=== PATIENT | female | born 1945 | race Caucasian/White ===

== ENCOUNTER → 2017-04-12 | Outpatient (REF) | payer MEDICARE, OTHER ==
[~2017-04-12] MED LIST: /RISE30TA OR; SIMV80TA OR; VICO5TAB OR
[2017-04-12 12:57] LABS: BASO % 0.8 % (0.0-1.0); EOS # 0.1 10^3/uL (0.0-0.50); EOS % 1.4 % (0.0-3.0); IMMATURE GRANULOCYTE % 0.2 % (0-0); LYMPH # 1.8 10^3/uL (1.5-4.5); MEAN CORPUSCULAR HEMOGLOBIN 31.6 pg (27.0-33.0); MEAN CORPUSCULAR HGB CONC 33.7 g/dl (32.0-36.5); MEAN CORPUSCULAR VOLUME 93.8 fl (80.0-96.0); MONO # 0.3 10^3/uL (0.0-0.8); MONO % 6.1 % (0.0-5.0); NEUTROPHILS # 2.7 10^3/uL (1.8-7.7); NEUTROPHILS % 54.5 % (36.0-66.0); PLATELET COUNT, AUTOMATED 199 10^3/uL (150-450); RED CELL DISTRIBUTION WIDTH 12.1 % (11.5-14.5); WHITE BLOOD COUNT 4.9 10^3/uL (4.0-10.0)
[2017-04-12 13:36] LABS: ALBUMIN 3.7 GM/DL (3.2-5.2); ALBUMIN/GLOBULIN RATIO 1.03 (1.00-1.93); ALKALINE PHOSPHATASE 51 U/L (45-117); ALT/SGPT 18 U/L (12-78); ANION GAP 7 MEQ/L (8-16); AST/SGOT 13 U/L (15-37); BILIRUBIN,TOTAL 0.3 MG/DL (0.2-1.0); BLOOD UREA NITROGEN 16 MG/DL (7-18); CALCIUM LEVEL 9.3 MG/DL (8.8-10.2); CARBON DIOXIDE LEVEL 27 MEQ/L (21-32); CHLORIDE LEVEL 107 MEQ/L (98-107); CHOLESTEROL LEVEL 361 MG/DL (<200); CREATININE FOR GFR 0.63 MG/DL (0.55-1.02); GLOMERULAR FILTRATION RATE > 60.0 (>39); GLUCOSE, FASTING 84 MG/DL (83-110); SODIUM LEVEL 141 MEQ/L (136-145); TOTAL PROTEIN 7.3 GM/DL (6.4-8.2); TRIGLYCERIDES LEVEL 241 MG/DL (<150)
== END ==
LOC: M LABDRWAD 12:24
PROVIDERS: ATTEND Emergency Medicine
DX: Z00.00 Encounter for general adult medical examination without abnormal findings (principal); E78.2 Mixed hyperlipidemia; N39.0 Urinary tract infection, site not specified; R53.83 Other fatigue; E55.9 Vitamin D deficiency, unspecified

== ENCOUNTER → 2017-05-08 | Outpatient (CLI) | payer MEDICARE, OTHER ==
--- NOTE | 2017-05-08 10:00 | REPMRS ---
Patient History The patient states she had a clinical breast exam in 05/12 Patient is postmenopausal. No known family history of cancer. Digital Woman Screen Mammo: May 08, 2017 - Exam #: [id number] Bilateral CC and MLO view(s) were taken. Technologist: Park Eaton, Technologist Prior study comparison: April 07, 2016, digital woman screen mammo performed at [facility] to [facility]. February 04, 2015, digital woman screen mammo performed at [facility] to [facility]. FINDINGS: There are scattered fibroglandular densities. There is a fairly symmetric fibroglandular pattern in both breasts. There has been no interval development of masses, areas of architectural distortion or clusters of microcalcifications typical of malignancy. ASSESSMENT: BI-RADS/ACR category 2 mammogram. Benign finding(s). Recommendation Routine screening mammogram of both breasts in 1 year (for women over age 40). This mammogram was interpreted with the aid of an FDA-approved computer-aided dectection system. Electronically Signed By: Mario Washington MD 05/08/17 1000
== END ==
LOC: M WHC 08:40
PROVIDERS: ATTEND Nurse Practitioner Family
DX: Z01.419 Encounter for gynecological examination (general) (routine) without abnormal findings (principal); Z12.31 Encounter for screening mammogram for malignant neoplasm of breast; Z78.0 Asymptomatic menopausal state; Z12.12 Encounter for screening for malignant neoplasm of rectum
CPT/HCPCS: 82270; G0101; G0202

== ENCOUNTER → 2017-09-26 | Outpatient (REF) | payer MEDICARE, OTHER | LOC: M LAB REF 17:10 | DX: N39.0 Urinary tract infection, site not specified (principal) | CPT/HCPCS: 87086 ==

== ENCOUNTER → 2018-04-11 | Outpatient (CLI) | payer MEDICARE, OTHER ==
[2018-04-11 13:37] LABS: ALBUMIN 3.7 GM/DL (3.2-5.2); ALBUMIN/GLOBULIN RATIO 0.97 (1.00-1.93); ALKALINE PHOSPHATASE 50 U/L (45-117); ALT/SGPT 15 U/L (12-78); ANION GAP 6 MEQ/L (8-16); AST/SGOT 13 U/L (7-37); BILIRUBIN,TOTAL 0.4 MG/DL (0.2-1.0); BLOOD UREA NITROGEN 15 MG/DL (7-18); CALCIUM LEVEL 8.6 MG/DL (8.8-10.2); CARBON DIOXIDE LEVEL 29 MEQ/L (21-32); CHLORIDE LEVEL 107 MEQ/L (98-107); CHOLESTEROL LEVEL 361 MG/DL (<200); CREATININE FOR GFR 0.68 MG/DL (0.55-1.30); GLOMERULAR FILTRATION RATE > 60.0 (>39); GLUCOSE, FASTING 87 MG/DL (70-100); HDL CHOLESTEROL 50 MG/DL (>40); LDL CHOLESTEROL 250 MG/DL (<100); NON-HDL-C 311 MG/DL; SODIUM LEVEL 142 MEQ/L (136-145); TOTAL 25(OH) VITAMIN D 30.6 NG/ML (30.0-100.0); TOTAL PROTEIN 7.5 GM/DL (6.4-8.2); TRIGLYCERIDES LEVEL 305 MG/DL (<150)
== END ==
LOC: M ADAMS 09:37
DX: E78.2 Mixed hyperlipidemia (principal); E55.9 Vitamin D deficiency, unspecified
CPT/HCPCS: 80053

== ENCOUNTER → 2018-05-04 | Outpatient (CLI) | payer MEDICARE, OTHER | LOC: M WHC 14:42 | DX: Z12.31 Encounter for screening mammogram for malignant neoplasm of breast (principal); Z01.419 Encounter for gynecological examination (general) (routine) without abnormal findings (principal); M81.0 Age-related osteoporosis without current pathological fracture; Z78.0 Asymptomatic menopausal state; Z12.12 Encounter for screening for malignant neoplasm of rectum | CPT/HCPCS: 77067 ==

== ENCOUNTER → 2018-07-10 | Outpatient (CLI) | payer MEDICARE, OTHER ==
--- NOTE | 2018-07-10 16:18 | REP ---
Pelvic sonography: History: Abdominal distension. Findings: Transabdominal and transvaginal scanning are performed. Uterine dimensions are somewhat enlarged at 11.0 x 5.8 x 8.4 cm. Endometrial echo 0.4 cm thick. A small quantity of endometrial fluid is seen. Endometrial displacement is seen posteriorly due to a large anterior fibroid. This measures 6.2 x 5.4 x 4.8 cm. There are two smaller fibroid posteriorly measuring 1.9 and 2.8 cm in greatest diameter respectively. No free fluid is seen. The right ovary is normal measuring 2.4 x 1.6 x 2.8 cm. The left ovary could not be seen either transabdominally or transvaginally. No cul-de-sac fluid is seen. Impression: Enlarged fibroid uterus. Left ovary could not be identified.
== END ==
LOC: M WHC 09:54
PROVIDERS: ATTEND Nurse Practitioner Family
DX: R14.0 Abdominal distension (gaseous) (principal)

== ENCOUNTER → 2018-07-18 | Outpatient (REF) | payer MEDICARE, OTHER | LOC: M SFHCPLAZ 17:22 | PROVIDERS: ATTEND Dermatology | DX: L30.8 Other specified dermatitis (principal) ==

== ENCOUNTER → 2018-12-24 | Outpatient (REF) | payer MEDICARE, OTHER ==
[2018-12-24 12:46] LABS: BASO % 0.7 % (0.0-1.0); EOS # 0.1 10^3/uL (0.0-0.50); EOS % 1.4 % (0.0-3.0); HEMATOCRIT 41.6 % (36.0-47.0); HEMOGLOBIN 13.8 g/dl (12.0-15.5); LYMPH # 1.9 10^3/uL (1.5-4.5); LYMPH % 42.9 % (24.0-44.0); MEAN CORPUSCULAR HEMOGLOBIN 31.7 pg (27.0-33.0); MEAN CORPUSCULAR HGB CONC 33.2 g/dl (32.0-36.5); MEAN CORPUSCULAR VOLUME 95.4 fl (80.0-96.0); MONO # 0.3 10^3/uL (0.0-0.8); MONO % 6.7 % (0.0-5.0); NEUTROPHILS # 2.1 10^3/uL (1.8-7.7); NEUTROPHILS % 48.1 % (36.0-66.0); PLATELET COUNT, AUTOMATED 208 10^3/uL (150-450); RED BLOOD COUNT 4.36 10^6/uL (4.00-5.40); WHITE BLOOD COUNT 4.3 10^3/uL (4.0-10.0)
[2018-12-24 12:57] LABS: ALBUMIN 3.9 GM/DL (3.2-5.2); ALT/SGPT 15 U/L (12-78); BILIRUBIN,TOTAL 0.3 MG/DL (0.2-1.0); BLOOD UREA NITROGEN 17 MG/DL (7-18); CALCIUM LEVEL 8.6 MG/DL (8.8-10.2); CARBON DIOXIDE LEVEL 29 MEQ/L (21-32); CHLORIDE LEVEL 108 MEQ/L (98-107); CHOLESTEROL LEVEL 310 MG/DL (<200); CREATININE FOR GFR 0.73 MG/DL (0.55-1.30); GLOMERULAR FILTRATION RATE > 60.0 (>39); GLUCOSE, FASTING 90 MG/DL (70-100); HDL CHOLESTEROL 54 MG/DL (>40); LDL CHOLESTEROL 205 MG/DL (<100); NON-HDL-C 256 MG/DL; POTASSIUM SERUM 4.2 MEQ/L (3.5-5.1); SODIUM LEVEL 142 MEQ/L (136-145); TOTAL PROTEIN 7.7 GM/DL (6.4-8.2); TRIGLYCERIDES LEVEL 256 MG/DL (<150)
== END ==
LOC: M SFHCADAM 08:18
PROVIDERS: ATTEND Family Medicine
DX: Z00.00 Encounter for general adult medical examination without abnormal findings (principal); E78.00 Pure hypercholesterolemia, unspecified

== ENCOUNTER → 2019-02-11 | Outpatient (CLI) | payer MEDICARE, OTHER ==
--- NOTE | 2019-02-11 15:54 | REP ---
REASON: Cough and pyrexia. PRIORS: None. There is mild cardiomegaly. The lung rajput are clear and the pleural angles are sharp. The osseous structures are within normal limits for the patient's age. IMPRESSION: Mild cardiomegaly, but no evidence of acute cardiopulmonary disease. Electronically Signed by Jonathan Hernandez DO 02/11/2019 04:49 P
== END ==
LOC: M ADAMS 13:48
PROVIDERS: ATTEND Physician Assistant
DX: R05 Cough (principal); R50.9 Fever, unspecified; I51.7 Cardiomegaly

== ENCOUNTER → 2019-05-14 | Outpatient (CLI) | payer MEDICARE, OTHER ==
--- NOTE | 2019-05-14 12:53 | REPMRS ---
Patient History The patient states she had a clinical breast exam in 04/2019. Patient is postmenopausal. No known family history of cancer. No Hormone Replacement Therapy 3D TOMOSYNTHESIS WAS PERFORMED. [facility] lifetime risk for breast cancer is 3.7%. Digital Woman Screen Mammo: May 14, 2019 - Exam #: [id number] Bilateral CC and MLO view(s) were taken. Technologist: Marla Lainez, Technologist Prior study comparison: May 04, 2018, bilateral digital woman screen mammo performed at [facility]. May 08, 2017, digital woman screen mammo performed at [facility]. FINDINGS: The breast tissue is heterogeneously dense. This may lower the sensitivity of mammography. There has been no change in the appearance of the mammogram from the prior studies. There is a moderate amount of residual fibroglandular tissue which is fairly symmetric. There is no interval development of dominant mass, areas of architectural distortion, or clustered microcalcification typical of malignancy. Assessment: BI-RADS/ACR category 1 mammogram. Negative Mammogram. Recommendation Routine screening mammogram in 1 year (for women over age 40). This mammogram was interpreted with the aid of an FDA-approved computer-aided dectection system. Electronically Signed By: Mario Washington MD 05/14/19 [id number]
== END ==
LOC: M WHC 11:42
PROVIDERS: ATTEND Nurse Practitioner Family
DX: Z12.31 Encounter for screening mammogram for malignant neoplasm of breast (principal); Z78.0 Asymptomatic menopausal state
CPT/HCPCS: 77063; 77067; G0463

== ENCOUNTER 2019-10-26 10:16 | Inpatient (IN) | payer MEDICARE, OTHER ==
[~2019-10-26] VITALS: Ht 162.6 cm; Wt 59.4 kg
--- NOTE | 2019-10-26 11:09 | REP ---
Clinical: Possible acute cerebrovascular accident. Comparison: 08/30/2010 . Findings: Age-related atrophy and microvascular ischemic changes are appreciated. The ventricles and sulci are symmetric. Washington-white differentiation is maintained. There is no evidence for acute intracranial hemorrhage, mass/mass effect, pathology or infarction. No extra-axial fluid collection. Calvarium is intact. Paranasal sinuses and mastoid air cells are clear. Impression: Age related atrophy and microvascular ischemic changes. No acute intracranial hemorrhage, infarction, or mass/mass effect. Electronically Signed by Michael Eubanks MD 10/26/2019 11:00 A
--- NOTE | 2019-10-26 11:16 | REP ---
Clinical: Acute cerebrovascular accident . Comparison: 02/11/2019 . Findings: The mediastinum and cardiac silhouette are stable and within normal limits for portable technique. The lung rajput are clear without acute consolidation, effusion, or pneumothorax. Skeletal structures demonstrate old right proximal right humerus fracture. Impression: No acute cardiopulmonary process appreciated. Electronically Signed by Michael Eubanks MD 10/26/2019 11:07 A
[2019-10-26] MEDS ORDERED: ISOVUE-370 76% 100ML VIAL As Ordered ONE (11:23)
[2019-10-26] MEDS ORDERED: ASPIRIN 325 MG TAB PO ONE (11:30)
[2019-10-26 11:33] LABS: BASO % 0.5 % (0.0-1.0); EOS % 0.5 % (0.0-3.0); HEMOGLOBIN 13.9 g/dl (12.0-15.5); LYMPH # 1.6 10^3/uL (1.5-5.0); LYMPH % 29.3 % (24.0-44.0); MEAN CORPUSCULAR HGB CONC 34.8 g/dl (32.0-36.5); MONO # 0.4 10^3/uL (0.0-0.8); MONO % 6.6 % (0.0-5.0); NEUTROPHILS # 3.5 10^3/uL (1.5-8.5); NEUTROPHILS % 62.9 % (36.0-66.0); PLATELET COUNT, AUTOMATED 209 10^3/uL (150-450); RED BLOOD COUNT 4.35 10^6/uL (4.00-5.40); WHITE BLOOD COUNT 5.6 10^3/uL (4.0-10.0)
[2019-10-26 11:47] LABS: INR 0.96; PROTHROMBIN TIME 12.5 SECONDS (11.8-14.0)
[2019-10-26 11:48] LABS: PARTIAL THROMBOPLASTIN TIME 36.1 SECONDS (25.0-38.4)
[2019-10-26 12:04] LABS: CK-MB VALUE MASS 1.1 NG/ML (<3.6); CPK CREATINE PHOSPHOKINASE 49 U/L (26-192); MB/CK RELATIVE INDEX 2.24 (< OR =4); TROPONIN I < 0.02 NG/ML (< 0.10)
[2019-10-26] MEDS ORDERED: VITA500075 PO (12:21)
[2019-10-26] MEDS ORDERED: IRON65TA2 PO (12:21)
[2019-10-26] MEDS ORDERED: ACETAMINOPHEN TAB 650MG DOSE (2X325MG) PO PRN (13:00)
--- NOTE | 2019-10-26 13:25 | HPEPDOC ---
General Date of Admission October 26, 2019 at 10:17 Date of Service: October 26, 2019 Chief Complaint The patient is a 74-year-old female admitted with a reason for visit of Diplopia. Source: Patient Exam Limitations: No limitations Timing/Duration: Other (since Monday) Severity: Moderate Associated Symptoms: Other (, blurred vision, left eye) History of Present Illness This is 74 years old white female with past medical history of fibroid uterus and osteoporosis was in usual state of health until Monday when she developed headache with a left-sided IV daily as an A she developed double vision from bedside, but slowly went away, patient took Tylenol with relief of symptoms but today she woke up again with similar symptoms. No history of nausea, vomiting, weakness, etc. Patient follows up with Dr. Cronin, she was seen by him on 09/11 with chief complaints of right sclera, redness, and was diagnosed with right supple conjunctival hemorrhage. Dr. Segura from neurology was called and he advised to admit patient for MRI of brain for possible TIA versus stroke Home Medications Scheduled Cholecalciferol (Vitamin D3) (Vitamin D3) 125 Mcg Capsule, 5,000 UNITS PO DAILY, (Reported) Ferrous Sulfate (Iron) 325 Mg Tablet, 325 MG PO DAILY, (Reported) Allergies Coded Allergies: Sulfa (Sulfonamide Antibiotics) (Verified Allergy, Unknown, RASH, 10/26/19) Past Medical History Medical History Fibroid uterus and osteoporosis Surgical History Colonoscopy with polypectomy Social History * Smoker: Denies Alcohol: Denies Drugs: denies A-FIB/CHADSVASC A-FIB History Current/History of A-Fib/PAF?: No Review of Systems Constitutional: Denies: Chills, Fever, Malaise, Night Sweats, Weakness, Fatigue, Weight Loss, Lethargy, Other Eyes: Reports: Vision change, Other (. Left eye Doppler. And, vision changes) ENT: Denies: Head Aches, Ear Pain, Dysphagia, Sinus Congestion, Post Nasal Drip, Sore Throat, Epistaxis, Other Symptoms Skin: Denies: Rash, Lesions, Jaundice, Bruising, Itching, Dry, Breakdown, Nail Changes, Other Pulmonary: Denies: Dyspnea, Cough, Pleuritic Chest Pain, Other Symptoms Cardiovascular: Denies: Chest Pain, Palpitations, Orthopnea, Paroxysmal Noc. Dyspnea, Edema, Lt Headedness, Other Symptoms Gastrointestinal: Denies: Nausea, Vomiting, Abdominal Pain, Diarrhea, Constipation, Melena, Hematochezia, Other Symptoms Genitourinary: Denies: Dysuria, Frequency, Incontinence, Hematuria, Retention, Other Symptoms Hematologic: Denies: Bruising, Bleeding Excessively, Petecchia, Purpura, Enlarged Lymph Nodes, Other Hematologic Endocrine: Denies: Polydipsia, Polyphagia, Polyuria, Heat Intolerance, Cold Intolerance, Other Endocrine Sx Musculoskeletal: Denies: Neck Pain, Back Pain, Shoulder Pain, Arm Pain, Hand Pain, Leg Pain, Foot Pain, Joint Pain, Muscle Pain, Spasms, Other Symptoms Neurological: Denies: Weakness, Numbness, Incoordination, Change in speech, Confusion, Seizures, Other Symptoms Psych: Denies: Mood Normal, Anxiety, Depression, Memory Issues, Thoughts of Self Harm, Anger, Thoughts of Harming Other, Other Psych Physical Examination General Exam: Positive: Alert, Cooperative Eye Exam: Positive: PERRLA, Conjunctiva & lids normal, Other Eye Symptoms (. Positive tenderness on palpation at left temporal area) ENT Exam: Positive: Atraumatic Neck Exam: Positive: Supple Chest Exam: Positive: Clear to auscultation, Normal air movement Heart Exam: Positive: Rate Normal, Normal S1, Normal S2 Abdomen Exam: Positive: Normal bowel sounds, Soft Extremity Exam: Positive: Normal pulses Skin Exam: Positive: Nl turgor and temperature Neuro Exam: Positive: Strength at 5/5 X4 ext, Sensation Intact, Cranial Nerves 3-12 NL Psych Exam: Positive: Mood NL, Oriented x 3 Vital Signs Vital Signs Date Time Temp Pulse Resp B/P (MAP) Pulse Ox O2 Delivery O2 Flow Rate FiO2 10/26/19 10:16 97.7 72 18 179/74 (109) 99 Room Air 154/64 (94) Laboratory Data Labs 24H Laboratory Tests 2 10/26/19 11:19: Immature Granulocyte % (Auto) 0.2, Neutrophils (%) (Auto) 62.9, Lymphocytes (%) (Auto) 29.3, Monocytes (%) (Auto) 6.6H, Eosinophils (%) (Auto) 0.5, Basophils (%) (Auto) 0.5, Neutrophils # (Auto) 3.5, Lymphocytes # (Auto) 1.6, Monocytes # (Auto) 0.4, Eosinophils # (Auto) 0.0, Basophils # (Auto) 0.0, Nucleated Red Blood Cells % (auto) 0.0, Prothrombin Time 12.5, Prothromb Time International Ratio 0.96, Activated Partial Thromboplast Time 36.1, POC Glucose (Misc Panel) 104, POC Sodium (Misc Panel) 141, POC Potassium (Misc Panel) 3.8, POC Chloride (Misc Panel) 104, POC Total CO2 (Misc Panel) 24.0, POC Blood Urea Nitrogen (Misc Panel 15, POC Ionized Calcium (Misc Panel) 5.1, POC Creatinine (Misc Panel) 0.7, POC Hematocrit (Misc Panel) 40.0, Total Creatine Kinase 49, Creatine Kinase MB 1.1, Creatine Kinase MB Relative Index 2.24, Troponin I < 0.02 CBC/BMP Laboratory Tests 10/26/19 11:19 Problems (1) Diplopia Status: Acute Problem Text: 74 years old white female with past medical history of fibroid uterus and osteoporosis. He had developed some conjunctival hemorrhage and redness of her sclera on right-sided and was seen by PMD recently again she developed this time. Headache less than as of 5, vision changes Doppler. Left eye since Monday symptoms resolved with Tylenol, but again she woke up this mo rning with a similar symptoms. On examination there is no neurological deficit, but there is a positive tenderness on left temporal area on palpation. All her other CAT scans has been negative so far for any evidence of CVA, DC of the brain is still pending. Patient most likely has symptoms of temporal arteritis , but cannot also rule out TIA versus CVA Admit patient to PCU with telemetry Neuro check every 4 hours for 24 hour Saline lock Patient received a aspirin 325 mg by mouth in the ED, will continue the same I will order a stat ESR to substantiate diagnosis of temporal arteritis Patient will be given 1 dose of prednisone 60 mg by mouth 1 until proven otherwise Reviewed patient's old medical records states that she developed severe myalgia with statins, hence will not start statin For better blood pressure control. Will start her on metoprolol 25 mg by mouth twice a day and adjust dose accordingly Follow pending. ESR an MRI brain DVT prophylaxis with Lovenox Activity as tolerated Diet 2 g sodium (2) HTN (hypertension) Status: Acute Problem Text: According to patient, she has no history of hypertension but her blood pressure had remained 180/70 in ED Considering neuro symptoms and headache. We'll start her on metoprolol 25 mg by mouth twice a day to control her blood pressure Will continue monitoring and change meds accordingly Echocardiogram for tomorrow morning. He has been ordered Plan / VTE VTE Prophylaxis Ordered?: Yes KAMRAN LAGUNA MD October 26, 2019 13:25
[2019-10-26] MEDS: METOPROLOL TART 25 MG TABLET PO SCH ×2 (13:32→20:28)
[2019-10-26 13:55] VITALS: BP 158/84
[2019-10-26] MEDS ORDERED: predniSONE 20 MG TAB PO ONE (14:00)
[2019-10-26] MEDS ORDERED: SLF 3 ML SYR IV PRN (14:00)
[2019-10-26 14:13] LABS: ERYTHROCYTE SEDIMENTATION RATE 56 mm/hr (0-30)
[2019-10-26] MEDS: SLF 3 ML SYR IV SCH ×2 (14:17→20:29)
--- NOTE | 2019-10-26 15:21 | REPVR ---
PROCEDURE INFORMATION: Exam: MR Head Without Contrast Exam date and time: 10/26/2019 2:45 PM Age: 74 years old Clinical indication: Pain; Visual disturbance; Other: Just above left eye; Patient HX: PT states double vision in left eye this am along with little headache above left eye; Additional info: Possible occipital infarct, double vision TECHNIQUE: Imaging protocol: MR of the head without contrast. COMPARISON: CT Head without contrast 10/26/2019 10:33 AM FINDINGS: Brain: There is mild patchy increased T2 signal intensity within the bilateral cerebral periventricular white matter, consistent with chronic microvascular ischemic changes. There are few small focal areas of chronic ischemia in bilateral frontal, parietal and periatrial white matter. There are prominent perivascular spaces in bilateral frontoparietal white matter.There is no abnormal diffusion weighted signal intensity to suggest an acute ischemic event. There is mild diffuse cerebral atrophy present, consistent with this patient's age. Chronic ischemic changes are seen in the florencio. Ventricles: The ventricular system demonstrates mild diffuse compensatory enlargement. Bones/joints: Unremarkable. Soft tissues: Unremarkable. Sinuses: Mild mucosal thickening is seen in the paranasal sinuses. Mastoid air cells: Normal as visualized. No mastoid effusion. Orbits: Unremarkable. IMPRESSION: 1. No acute infarction, masses or hemorrhage is seen. No acute intracranial abnormality is identified. 2. Diffuse age-related cerebral atrophy and mild chronic microvascular white matter ischemic changes, without evidence of an acute intracranial abnormality. 3. There has been no adverse interval change since the previous study. Electronically signed by: John Lee On 10/26/2019 15:21:31 PM
--- NOTE | 2019-10-26 19:32 | ECGEPIP ---
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
[2019-10-26 20:00] VITALS: BP 129/61
[2019-10-26] MEDS: ENOXAPARIN 40MG/0.4ML SYRINGE (J1650 PER 10MG) SC SCH (20:28)
[2019-10-27] VITALS (7 sets, daily range): BP systolic 105–143; BP diastolic 49–65
[2019-10-27 03:56] LABS: HEMOGLOBIN 12.8 g/dl (12.0-15.5); MEAN CORPUSCULAR HEMOGLOBIN 31.4 pg (27.0-33.0); MEAN CORPUSCULAR HGB CONC 34.6 g/dl (32.0-36.5); MEAN CORPUSCULAR VOLUME 90.9 fl (80.0-96.0); PLATELET COUNT, AUTOMATED 226 10^3/uL (150-450); RED BLOOD COUNT 4.07 10^6/uL (4.00-5.40); WHITE BLOOD COUNT 8.4 10^3/uL (4.0-10.0)
[2019-10-27] MEDS: SLF 3 ML SYR IV SCH ×3 (04:20→20:18)
[2019-10-27 04:24] LABS: ALBUMIN 3.4 GM/DL (3.2-5.2); ALT/SGPT 13 U/L (12-78); BILIRUBIN,TOTAL 0.4 MG/DL (0.2-1.0); BLOOD UREA NITROGEN 19 MG/DL (7-18); CALCIUM LEVEL 9.4 MG/DL (8.8-10.2); CARBON DIOXIDE LEVEL 24 MEQ/L (21-32); CHLORIDE LEVEL 105 MEQ/L (98-107); CREATININE FOR GFR 0.66 MG/DL (0.55-1.30); GLOMERULAR FILTRATION RATE > 60.0 (>39); GLUCOSE, FASTING 109 MG/DL (70-100); POTASSIUM SERUM 3.8 MEQ/L (3.5-5.1); SODIUM LEVEL 137 MEQ/L (136-145); TOTAL PROTEIN 7.2 GM/DL (6.4-8.2)
[2019-10-27] MEDS: predniSONE 20 MG TAB PO SCH (08:56)
[2019-10-27] MEDS: METOPROLOL TART 25 MG TABLET PO SCH (08:57)
[2019-10-27] MEDS: FERROUS SULFATE 325MG TAB PO SCH (08:57)
[2019-10-27] MEDS: ASPIRIN 325 MG TAB PO SCH (08:57)
--- NOTE | 2019-10-27 11:07 | IPNPDOC ---
Subjective Date Seen The patient was seen on 10/27/19. Subjective Chief Complaint/HPI Patient is still sees double on lateral gaze on left side and inferior gaze on left side, but no more headache General: Denies: ROS Unobtainable, Chills, Night Sweats, Fatigue, Malaise, Normal Appetite, Other Symptoms Constitutional: Denies: Chills, Fever, Malaise, Night Sweats, Weakness, Fatigue, Weight Loss, Lethargy, Other Eyes: Reports: Other (Depo-Provera on the left years and inferior gaze) ENT: Denies: Head Aches, Ear Pain, Dysphagia, Sinus Congestion, Post Nasal Drip, Sore Throat, Epistaxis, Other Symptoms Skin: Denies: Rash, Lesions, Jaundice, Bruising, Itching, Dry, Breakdown, Nail Changes, Other Pulmonary: Denies: Dyspnea, Cough, Pleuritic Chest Pain, Other Symptoms Cardiovascular: Denies: Chest Pain, Palpitations, Orthopnea, Paroxysmal Noc. Dyspnea, Edema, Lt Headedness, Other Symptoms Gastrointestinal: Denies: Nausea, Vomiting, Abdominal Pain, Diarrhea, Constipation, Melena, Hematochezia, Other Symptoms Musculoskeletal: Denies: Neck Pain, Back Pain, Shoulder Pain, Arm Pain, Hand Pain, Leg Pain, Foot Pain, Joint Pain, Muscle Pain, Spasms, Other Symptoms Neurological: Denies: Weakness, Numbness, Incoordination, Change in speech, Confusion, Seizures, Other Symptoms Objective Physical Examination Eye Exam: Positive: PERRLA, Conjunctiva & lids normal ENT Exam: Positive: Atraumatic Neck Exam: Positive: Supple Chest Exam: Positive: Clear to auscultation, Normal air movement Heart Exam: Positive: Rate Normal, Normal S1, Normal S2 Abdomen Exam: Positive: Normal bowel sounds, Soft Extremity Exam: Positive: Normal pulses Skin Exam: Positive: Nl turgor and temperature Neuro Exam: Positive: Strength at 5/5 X4 ext, Sensation Intact, Cranial Nerves 3-12 NL Psych Exam: Positive: Mood NL, Oriented x 3 Assessment /Plan Problems (1) Diplopia Status: Acute Problem Text: 74 years old white female with past medical history of fibroid uterus and osteoporosis. He had developed some conjunctival hemorrhage and redness of her sclera on right-sided and was seen by PMD recently again she developed this time. Headache less than as of 5, vision changes Doppler. Left eye since Monday symptoms resolved with Tylenol, but again she woke up this morning with a similar symptoms. On examination there is no neurological deficit, but there is a positive tenderness on left temporal area on palpation. All her other CAT scans has been negative so far for any evidence of CVA, MRI brain is also negative. Patient most likely has symptoms of temporal arteritis , but cannot also rule out TIA versus CVA, Also cannot rule out the sailing officer pathology Patient was started on prednisone 60 mg by mouth daily, unfortunately we don't have vascular surgery coverage. This week, so I have requested IR to perform a temporal artery biopsies before patient is discharged home on by mouth prednisone I also discussed with the sailing officer contracts administrator, , he recommended patient to follow-up in his office on Monday for extensive ophthalmology: Examination (2) HTN (hypertension) Status: Acute Problem Text: Blood pressure under well control is less than 150 systolic And heart rate of an heart rate of 65 Decrease metoprolol to 12.5 mg by mouth twice a day and monitor her blood pressure and heart rate Plan/VTE VTE Prophylaxis Ordered?: Yes VS, I&O, 24H, Fishbone Vital Signs/I&O Vital Signs Date Time Temp Pulse Resp B/P (MAP) Pulse Ox O2 Delivery O2 Flow Rate FiO2 10/27/19 08:57 65 105/49 10/27/19 08:00 98.2 20 96 Room Air I&O- Last 24 Hours up to 6 AM 10/27/19 06:00 Intake Total 740 ml Output Total 600 ml Balance 140 ml Laboratory Data 24H LABS Laboratory Tests 2 10/26/19 11:19: Immature Granulocyte % (Auto) 0.2, Neutrophils (%) (Auto) 62.9, Lymphocytes (%) (Auto) 29.3, Monocytes (%) (Auto) 6.6H, Eosinophils (%) (Auto) 0.5, Basophils (%) (Auto) 0.5, Neutrophils # (Auto) 3.5, Lymphocytes # (Auto) 1.6, Monocytes # (Auto) 0.4, Eosinophils # (Auto) 0.0, Basophils # (Auto) 0.0, Nucleated Red Blood Cells % (auto) 0.0, Erythrocyte Sedimentation Rate 56H, Prothrombin Time 1 2.5, Prothromb Time International Ratio 0.96, Activated Partial Thromboplast Time 36.1, POC Glucose (Misc Panel) 104, POC Sodium (Misc Panel) 141, POC Potassium (Misc Panel) 3.8, POC Chloride (Misc Panel) 104, POC Total CO2 (Misc Panel) 24.0, POC Blood Urea Nitrogen (Misc Panel 15, POC Ionized Calcium (Misc Panel) 5.1, POC Creatinine (Misc Panel) 0.7, POC Hematocrit (Misc Panel) 40.0, Total Creatine Kinase 49, Creatine Kinase MB 1.1, Creatine Kinase MB Relative Index 2.24, Troponin I < 0.02 10/26/19 18:00: Troponin I < 0.02 10/27/19 01:41: Troponin I < 0.02 10/27/19 03:15: Nucleated Red Blood Cells % (auto) 0.0 10/27/19 03:16: Anion Gap 8, Glomerular Filtration Rate > 60.0, Calcium Level 9.4, Total Bilirubin 0.4, Aspartate Amino Transf (AST/SGOT) 10, Alanine Aminotransferase (ALT/SGPT) 13, Alkaline Phosphatase 48, Total Protein 7.2, Albumin 3.4, Albumin/Globulin Ratio 0.89L CBC/BMP Laboratory Tests 10/26/19 11:19 10/27/19 03:15 10/27/19 03:16 KAMRAN LAGUNA MD October 27, 2019 11:07
[2019-10-27] MEDS: ENOXAPARIN 40MG/0.4ML SYRINGE (J1650 PER 10MG) SC SCH (20:17)
[2019-10-27] MEDS: METOPROLOL TART 12.5 MG PER 1/2 TAB PO SCH (20:17)
[2019-10-28] VITALS (13 sets, daily range): BP systolic 114–173; BP diastolic 56–82
--- NOTE | 2019-10-28 04:19 | REP ---
Clinical: Acute cerebrovascular accident. Technique: Axial contrast enhanced images from the skull base to the vertex using angiographic technique including multiplanar MIP re-formations. 100 ml Isovue 370 intravenous contrast material administered without complication. Findings: The redding of Ramirez and vertebrobasilar system appear intact, normal and relatively symmetric. Vasculature to the bilateral hemispheres and posterior fossa appear normal. No evidence for arterial occlusion, aneurysm, arteriovenous malformation, or other obvious abnormality identified. Impression: Essentially normal CT angiogram of the head. Electronically Signed by Michael Eubanks MD 10/28/2019 04:10 A
[2019-10-28] MEDS: SLF 3 ML SYR IV SCH ×3 (06:20→20:04)
--- NOTE | 2019-10-28 08:33 | CR.PDOC ---
General Date of Consultation: October 28, 2019 Consultation Vascular Surgery HPI: 74year oldF admitted with diplopia, vascular surgery consulted for possible temporal artery biopsy. The patient states she has been having diplopia since Monday. Predominantly in the left eye. Seems to wax and wane. Also had noted headache and some left temporal area tenderness. Patient has been started on po prednisone D2. Denies any fevers, chills, weakness, fatigue, Chest Pain, Shortness of breath, cough, palpitations, abdominal pain, N/V/D or changes in bowel or bladder habits. Medical History Fibroid uterus osteoporosis Surgical History Colonoscopy with polypectomy SOCHX: Nonsmoker FAMHX: ROS: As noted in HPI, otherwise 11pt ROS of systems reviewed and unremarkable. PE: GEN: 74yoF, appears stated age. Alert and oriented x 3. Pleasant, interactive. HEENT: Normocephalic, atraumatic. Extraocular movements are intact. No nystagmus appreciated. Sclera are nonicteric. Conjunctiva without injection. Nose midline. No facial asymmetry. Mild TTP in the left temporal area. Moist mucous membranes. Dentition fair. Neck supple, trachea midline. No lymphadenopathy or thyromegaly appreciated. CHEST: Regular rate and rhythm, +S1, +S2 LUNGS: No wheezes, rales, or rhonchi. Breathing appears symmetric and easy. ABD: Round, soft, non-tender, non-distended. EXT: No lower extremity edema appreciated. SKIN: [place], dry, warm. Capillary refill <2sec. No rashes. NEURO: Alert and oriented x 3. Cranial nerves III-XII are intact. No focal deficits appreciated. A&P: 1. Diplopia/headache. The patient has reported also some left temporal tenderness. ESR 56 Concern for temporal arteritis. Dr. Devine has evaluated the patient for temporal artery biopsy, plan to proceed later today. The procedure, risks, benefits and alternatives are reviewed with the patient as per Dr. Devine. All questions are answered. Consent is obtained and placed with the chart. Transfusion consent is obtained and placed with the chart. Thank you for your consultation. We will continue to follow along with you. Vital Signs/I&O Vital Signs Date Time Temp Pulse Resp B/P (MAP) Pulse Ox O2 Delivery O2 Flow Rate FiO2 10/28/19 04:00 98.1 57 16 128/60 (82) 98 Room Air I&O- Last 24 Hours up to 6 AM 10/28/19 05:59 Intake Total 1530 ml Output Total 850 ml Balance 680 ml Allergies Coded Allergies: Sulfa (Sulfonamide Antibiotics) (Verified Allergy, Unknown, RASH, 10/26/19) Home Medications Scheduled Cholecalciferol (Vitamin D3) (Vitamin D3) 125 Mcg Capsule, 5,000 UNITS PO DAILY, (Reported) Ferrous Sulfate (Iron) 325 Mg Tablet, 325 MG PO DAILY, (Reported) Amy Cleary October 28, 2019 08:33
[2019-10-28] MEDS: ASPIRIN 325 MG TAB PO SCH (08:50)
[2019-10-28] MEDS: FERROUS SULFATE 325MG TAB PO SCH ×2 (08:51→08:55)
[2019-10-28] MEDS: METOPROLOL TART 12.5 MG PER 1/2 TAB PO SCH ×2 (08:51→20:02)
[2019-10-28] MEDS: predniSONE 20 MG TAB PO SCH (08:51)
--- NOTE | 2019-10-28 09:49 | ECHO ---
DATE OF STUDY: 10/26/2019 REFERRING PHYSICIAN: Roel Gurrola MD INDICATION: Transient ischemic attack (TIA). Height 163 cm, weight 60 kg. DIMENSIONS: IVS 1.1 LV 3.9 LVPW 1.1 LA 3.7 Aorta 2.9 RV: 2.6 IVC: 1.6 Mitral E wave velocity 57 A wave 65 E prime septal 6.0 E prime lateral 5.7 FINDINGS: The study is of good technical quality. The patient is in sinus rhythm. Left ventricle is normal size and has normal systolic function, estimated left ventricular ejection fraction (LVEF) 65% to 70%. No segmental wall motion abnormalities are appreciated. Right ventricle is also normal size and systolic function. Both atria appear normal. All four cardiac valves appear normal. No pericardial effusion is noted. Inferior vena cava is normal size and appropriately collapses with inspiration, indicative of normal central venous pressure. Aortic root, aortic arch, and visualized segment of abdominal aorta all appear normal. Doppler interrogation reveals no aortic stenosis or insufficiency. There is trace mitral and pulmonic insufficiency. Tricuspid valve is functionally competent. Mitral inflow pattern and tissue Doppler imaging of mitral annulus reveal grade 1 diastolic dysfunction. Injection of a agitated saline through peripheral vein failed to reveal any crossing of the contrast from right-sided heart chambers to the left-sided heart chambers. CONCLUSIONS: 1. Study is of good technical quality, the patient is in sinus rhythm. 2. Normal LV size and systolic function, grade 1 diastolic dysfunction. 3. No significant valvular disease. 4. Normal central venous pressure. 5. Unable to estimate pulmonary artery pressure but no indications of pulmonary hypertension. 6. Negative "bubble study." COMMENT: Subacute bacterial endocarditis (SBE) prophylaxis is not recommended. Essentially normal echocardiogram for patient's age.
--- NOTE | 2019-10-28 10:55 | IPNPDOC ---
Subjective Date Seen The patient was seen on 10/28/19. Subjective Chief Complaint/HPI As per patient, she has no more headache and double vision is also improving, awaiting temporal artery biopsy. General: Denies: ROS Unobtainable, Chills, Night Sweats, Fatigue, Malaise, Normal Appetite, Other Symptoms Constitutional: Denies: Chills, Fever, Malaise, Night Sweats, Weakness, Fatigue, Weight Loss, Lethargy, Other Eyes: Reports: Other (improving, double vision) ENT: Denies: Head Aches, Ear Pain, Dysphagia, Sinus Congestion, Post Nasal Drip, Sore Throat, Epistaxis, Other Symptoms Skin: Denies: Rash, Lesions, Jaundice, Bruising, Itching, Dry, Breakdown, Nail Changes, Other Pulmonary: Denies: Dyspnea, Cough, Pleuritic Chest Pain, Other Symptoms Cardiovascular: Denies: Chest Pain, Palpitations, Orthopnea, Paroxysmal Noc. Dyspnea, Edema, Lt Headedness, Other Symptoms Gastrointestinal: Denies: Nausea, Vomiting, Abdominal Pain, Diarrhea, Constipation, Melena, Hematochezia, Other Symptoms Musculoskeletal: Denies: Neck Pain, Back Pain, Shoulder Pain, Arm Pain, Hand Pain, Leg Pain, Foot Pain, Joint Pain, Muscle Pain, Spasms, Other Symptoms Neurological: Denies: Weakness, Numbness, Incoordination, Change in speech, Confusion, Seizures, Other Symptoms Objective Physical Examination Eye Exam: Positive: PERRLA, Conjunctiva & lids normal ENT Exam: Positive: Atraumatic Neck Exam: Positive: Supple Chest Exam: Positive: Clear to auscultation, Normal air movement Heart Exam: Positive: Rate Normal, Normal S1, Normal S2 Abdomen Exam: Positive: Normal bowel sounds, Soft Extremity Exam: Positive: Normal pulses Skin Exam: Positive: Nl turgor and temperature Neuro Exam: Positive: Strength at 5/5 X4 ext, Sensation Intact, Cranial Nerves 3-12 NL Psych Exam: Positive: Mood NL, Oriented x 3 Assessment /Plan Problems (1) Diplopia Status: Acute Problem Text: 74 years old white female with past medical history of fibroid uterus and osteoporosis. He had developed some conjunctival hemorrhage and redness of her sclera on right-sided and was seen by PMD recently again she developed this time. Headache less than as of , vision changes Doppler. Left eye since Monday symptoms resolved with Tylenol, but again she woke up this morning with a similar symptoms. On examination there is no neurological deficit, but there is a positive tenderness on left temporal area on palpation. All her other CT scans has been negative so far for any evidence of CVA, MRI brain is also negative. Patient most likely has symptoms of temporal arteritis, she is responding very well to by mouth prednisone and will continue the same Discussed with Dr. Mcintosh, requested left temporal artery biopsy for which she'll be scheduled today or tomorrow Also discussed with social work to schedule patient an appointment with ophthalmology, Dr. Moeller'office once she is discharged. Diagnosis, management and prognosis and further workup was discussed with patient and her on the speaker phone today. Patient can be discharged home once the temporal artery biopsy done and there are no complications. (2) HTN (hypertension) Status: Acute Problem Text: Her blood pressures are under well control with metoprolol 12.5 mg by mouth twice a day, which I will change it to metoprolol tartrate XL 25 mg by mouth daily from tomorrow Patient will be discharged home on by mouth metoprolol as per orders Plan/VTE VTE Prophylaxis Ordered?: Yes VS, I&O, 24H, Fishbone Vital Signs/I&O Vital Signs Date Time Temp Pulse Resp B/P (MAP) Pulse Ox O2 Delivery O2 Flow Rate FiO2 10/28/19 08:51 58 156/66 10/28/19 08:00 98.3 17 97 Room Air I&O- Last 24 Hours up to 6 AM 10/28/19 06:00 Intake Total 1530 ml Output Total 1150 ml Balance 380 ml KAMRAN LAGUNA MD October 28, 2019 10:55
--- NOTE | 2019-10-28 16:42 | IPNPDOC ---
Date Seen The patient was seen on 10/28/19. Progress Note Patient seen and examined. Please see Amy REGALADO consultation note for full consultation. The patient is been having diplopia and left-sided worsening right-sided headaches, temporal pain, also left side worse than right side, and has an elevated ESR. We discussed the risks benefits and alternatives to a left temporal artery biopsy and she is agreeable to proceed. Informed consent was obtained. We will plan to do this later this afternoon or evening, and she should be nothing by mouth from this point forward. She is agreeable and has not had lunch yet. I discussed with her that postprocedure, it will be okay for her to wash her hair, but the water should not be too hot or too cold, she should not scrub the incision, and it is best to use a gentle shampoo such as a baby shampoo. No heat or styling products until the incision is completely healed. There will be visible nylon sutures closing the incision. It will be difficult to keep her dressing over the incision and therefore we will recommend leaving it open to air but putting a triple antibiotic ointment such as bacitracin or Neosporin over the incision daily after cleaning. It is best following the p rocedure the patient sleeps somewhat upright for the first night to diminish risk of bleeding from the incision. We went over all of this in detail and she is agreeable to the plan and we will proceed this evening. We appreciate the opportunity to participate in the care of this patient. VS, I&O, 24H, Fishbone Vital Signs/I&O Vital Signs Date Time Temp Pulse Resp B/P (MAP) Pulse Ox O2 Delivery O2 Flow Rate FiO2 10/28/19 12:00 98.3 68 17 114/ (38 95 Room Air I&O- Last 24 Hours up to 6 AM 10/28/19 05:59 Intake Total 1530 ml Output Total 850 ml Balance 680 ml Laboratory Data 24H LABS Laboratory Tests 2 10/28/19 12:13: Coronavirus (COVID-19)(PCR) NEGATIVE JEROME SALDANA MD October 28, 2019 16:42
[2019-10-28] MEDS ORDERED: propofoL 200 MG/20 ML VIAL As Ordered ONE (16:54)
[2019-10-28] MEDS ORDERED: MIDAZOLAM INJ 2MG/2ML VIAL (J2250 PER 1MG) As Ordered ONE (16:54)
[2019-10-28] MEDS ORDERED: LIDOCAINE 2% 100MG/5ML SDV (FOR ANES.) As Ordered ONE (16:54)
[2019-10-28] MEDS ORDERED: ONDANSETRON 4MG/2ML VIAL As Ordered ONE (16:54)
[2019-10-28] MEDS ORDERED: fentaNYL 100 MCG/2 ML INJECTION (J3010) As Ordered ONE (16:54)
[2019-10-28] MEDS ORDERED: BUPIVACAINE/EPIN 0.5% 30 ML VIAL As Ordered ONE (16:57)
[2019-10-28] MEDS ORDERED: LIDOCAINE 1% MDV 20ML VIAL As Ordered ONE (16:57)
[2019-10-28] MEDS ORDERED: BACITRACIN OINTMENT 30GM TUBE As Ordered ONE (16:57)
[2019-10-28] MEDS ORDERED: ePHEDrine SULFATE 25 MG/5 ML(5MG/ML) SYRINGE As Ordered ONE (18:03)
[2019-10-28] MEDS ORDERED: ceFAZolin 2 GM/D5W 50 ML IV BAG (J0690 PER 500MG) As Ordered ONE (18:03)
--- NOTE | 2019-10-28 18:53 | ROOPDOC ---
[facility] Report Of Operation Report of Operation DATE OF PROCEDURE: 10/28/19 PREPROCEDURE DIAGNOSES: Diplopia, headache, left temporal pain POSTPROCEDURE DIAGNOSES: Diplopia, headache, left temporal pain PROCEDURE: Left temporal artery biopsy. SURGEON: Jerome Devine MD ANESTHESIA: Local anesthesia and monitored anesthesia care INDICATION FOR PROCEDURE: This is a very pleasant 74-year-old patient with recent history of diplopia, headaches, elevated ESR, and left temporal pain. There is concern she may have temporal arteritis, and steroids have been started. We have been asked to do a temporal artery biopsy to aid in diagnosis. Risks benefits and alternatives to a left temporal artery biopsy were explained to the patient she is agreeable to proceed. Informed consent was obtained. REPORT OF OPERATION: The patient was brought to the operating room in stable condition and placed supine on the or table. Anesthesia and antibiotics were administered without complication. An ultrasound was used to map her left temporal artery biopsy and marked on the skin with a marking pen. The hair only over the incision was carefully clipped, preserving the hair medial and lateral to the planned incision. The left oriental orthodox was prepped and draped in sterile fashion. A timeout was performed. Local anesthesia was administered to the skin and subcutaneous tissue over the left oriental orthodox. Skin knife was used to make an incision over the left oriental orthodox. This was carried down through the subcutaneous tissue with sharp dissection. Bovie cautery was used for hemostasis. A temporal artery was identified. It was skeletonized proximally and distally within the incision. Branches were clipped and ligated. 6 cm of artery was carefully skeletonized and a suture was placed proximally and distally to ligate the artery. The artery was removed and sent for pathology. Additional local anesthesia was administered to the skin and subcutaneous tissue. The incision was carefully irrigated with normal saline. The deep tissue was approximated with a running Vicryl suture. The skin was closed with a running nylon baseball suture. Triple antibiotic ointment and Xeroform were used to dress the incision. The patient was allowed to awaken from anesthesia was taken to recovery in stable condition. She tolerated the procedure and the anesthesia well without complication. ESTIMATED BLOOD LOSS: Approximately 3 mL. PATHOLOGY: Left temporal artery sent for pathology. COMPLICATIONS: None. PLAN: Please hold the Lovenox until 10/29/2019. Okay to resume regular preoperative diet and preoperative medications. Okay for discharge to home per vascular surgery when stable from a hospitalist standpoint. Please keep the head of bed greater than 30 overnight. It is okay for the patient to shower, but we recommend her to use baby shampoo. She should not scrub the incision. No heat styling or styling products until he incision is completely healed. She is to keep the incision very clean, and to apply triple antibiotic ointment such as bacitracin or Neosporin daily and leave the incision open to air. No strenuous exercise or lifting greater than 5 pounds for 1 week. We appreciate the opportunity to participate in the care of this patient. JEROME DEVINE MD October 28, 2019 18:53
[2019-10-28] MEDS ORDERED: LR 1,000 ML IV SCH (19:00)
[2019-10-28] MEDS ORDERED: oxyCODONE 5MG TAB PO PRN (19:00)
[2019-10-28] MEDS: ENOXAPARIN 40MG/0.4ML SYRINGE (J1650 PER 10MG) SC SCH (19:54)
[2019-10-28] MEDS ORDERED: METOPROLOL SUCC *XL* 25MG TAB (TopROL *XL*) PO SCH (21:00)
[2019-10-28] MEDS ORDERED: ceFAZolin SOD 2 GM in IV 1 EA IV ONE (21:00)
[2019-10-29] VITALS: BP 121/63
[2019-10-29 04:00] VITALS: BP 144/65
[2019-10-29] MEDS: SLF 3 ML SYR IV SCH (05:10)
[2019-10-29 08:00] VITALS: BP 129/58
[2019-10-29] MEDS: ASPIRIN 325 MG TAB PO SCH (08:57)
[2019-10-29] MEDS: predniSONE 20 MG TAB PO SCH (08:57)
[2019-10-29] MEDS: FERROUS SULFATE 325MG TAB PO SCH ×2 (08:57→08:59)
--- NOTE | 2019-10-29 09:41 | IPNPDOC ---
Date Seen The patient was seen on 10/29/19. Progress Note Patient seen and examined earlier this morning. She had some dry blood around her incision and hair, which I carefully cleaned away. The incision is clean dry and intact. No active bleeding was noted. She should keep her head elevated to diminish the risk of bleeding. I cleaned the area thoroughly and applied bacitracin over the incision. The patient tolerated this well. There is no erythema or drainage. The sutures are intact. Okay for discharge to home per vascular surgery when stable from a hospitalist standpoint. Please keep the head up greater than 30-45 over the next 48 hours. It is okay for the patient to shower, but we recommend her to use baby shampoo. She should not scrub the incision. No heat styling or styling products until he incision is completely healed. She is to keep the incision very clean, and to apply triple antibiotic ointment such as bacitracin or Neosporin daily and leave the incision open to air. No strenuous exercise or lifting greater than 5 pounds for 1 week. She will need to follow up in one week for suture removal. We appreciate the opportunity to participate in the care of this patient. VS, I&O, 24H, Fishbone Vital Signs/I&O Vital Signs Date Time Temp Pulse Resp B/P (MAP) Pulse Ox O2 Delivery O2 Flow Rate FiO2 10/29/19 08:00 97.6 53 16 129/58 (81) 96 Room Air 10/28/19 18:45 2 I&O- Last 24 Hours up to 6 AM 10/29/19 06:00 Intake Total 1050 ml Output Total 1100 ml Balance -50 ml Laboratory Data 24H LABS Laboratory Tests 2 10/28/19 12:13: Coronavirus (COVID-19)(PCR) NEGATIVE JEROME SALDANA MD October 29, 2019 09:41
[2019-10-29] MEDS ORDERED: PRED20TA PO (11:36)
[2019-10-29] MEDS ORDERED: NEOM28.3 TP (11:36)
[2019-10-29 12:00] VITALS: BP 111/56
--- NOTE | 2019-10-29 15:15 | DS.PDOC ---
Discharge Summary General Date of Admission October 28, 2019 at 14:00 Date of Discharge 10/29/19 Primary Care Physician: BENJAMIN HOLLOWAY DO Attending Physician: Amberly Robledo MD Discharge Summary HISTORY OF PRESENT ILLNESS: The patient is a 74 years old white female with past medical history of fibroid uterus and osteoporosis was in usual state of health until Monday when she developed headache with a left-sided IV daily as an A she developed double vision from bedside, but slowly went away, patient took Tylenol with relief of symptoms but today she woke up again with similar symptoms. No history of nausea, vomiting, weakness, etc. Patient follows up with Dr. Cronin, she was seen by him on 09/11 with chief complaints of right sclera, redness, and was diagnosed with right supple conjunctival hemorrhage. Dr. Segura from neurology was called and he advised to admit patient for MRI of brain for possible TIA versus stroke. HOSPITAL COURSE: During hospitalization, MRI showed no acute infarction, masses or hemorrhage was seen. No acute intracranial abnormality was identified. CT angio of head was neg. Patient had tenderness of palpation on exam of left temporal artery. There were continued concerns for temporal arteritis, TIA versus CVA. Patient was started on prednisone 60 mg by mouth daily. Vascular surgery was consulted to perform a temporal artery biopsy, which was done on 10/28/19 without complications. Left temporal artery biopsy was sent to pathology. Case was also discussed with the auto parts delivery driver media/instructional designer, Dr. Moeller, he recommended patient to follow-up in his office on 11/05/19 after discharge for extensive ophthalmology examination. Diplopia resolved and patient was much improved after several days of 60 mg PO prednisone. On 10/29/19, patient was reevaluated by vascular surgery who says patient was doing well. Patient was discharged home with 60 mg PO daily prednisone x 2 weeks, 50 mg PO daily x 1 week and 40 mg PO daily x 1 week. Pt will follow up with vascular surgery, auto parts delivery driver and PCP as scheduled prior to discharge. She has specific incision care instructions to follow per vascular surgery. Patient is to have sutures out in 1 week after discharge. If she should have increased headache, vision changes then she should seek medical attention at once. REVIEW OF SYSTEMS: CONSTITUTIONAL: Denies lack of energy, unexplained weight gain or weight loss, loss of appetite, fever, night sweats EYES: Denies eye drainage, eye pain, visual changes, dry/irritated eye EARS, NOSE, MOUTH, THROAT: Denies difficulty hearing, ringing in ears, mouth sores, loose teeth, sore throat, facial numbness or pain NECK: Denies swollen glands CARDIOVASCULAR: Denies irregular heartbeat, racing heart, chest pains, swelling of feet or legs, pain in legs with walking RESPIRATORY: Denies shortness of breath, night sweats, wheezing, sputum production, oxygen at home, coughing up blood, cough lasting > 1 month GASTROINTESTINAL: Denies abdominal pain, constipation, bloody stool, diarrhea, heartburn, nausea, vomiting GENITOURINARY: Denies painful urination, bloody urine, frequent urination, urgency, leaking urine, impotence MUSCULOSKELETAL: Denies joint pain, muscle pain, leg swelling INTEGUMENTARY: Denies rash, itching, new skin lesion, change in existing skin lesion, hair loss or increase, breast changes. NEUROLOGICAL: Denies headaches, dizziness, difficulty walking, numbness or tingling PSYCHIATRIC: Denies depression, anxiety, recurrent bad thoughts, mood swings, hallucinations PAST MEDICAL HISTORY: 1. Fibroid uterus 2. osteoporosis 3. Possible temporal arteritis 4. Iron deficiency anemia. 5. Vitamin D deficiency PAST SURGICAL HISTORY: 1. Left temporal artery biopsy 10/28/19 2. Colonoscopy with polypectomy FAMILY HISTORY: No significant family history. SOCIAL HISTORY: * Smoker: Denies Alcohol: Denies Drugs: denies ALLERGIES: Please see below. DISCHARGE MEDICATIONS: Please see below. PHYSICAL EXAMINATION: CONSTITUTIONAL: No acute distress, resting comfortably, AAO x 3 EYES: PERRLA, EOM intact HENT, MOUTH: Normocephalic, Incision on left temporal area has multiple stitches, well healing, clean, nonsuppurative. moist mucous membranes, NECK: SUPPLE, no JVD, no lymphadenopathy, no carotid bruit CV: Regular rate and rhythm, S1S2 normal, no murmurs/rubs/gallops RESPIRATORY: Clear to auscultation bilaterally, no rales/rhonchi/wheezes GI: BS positive in 4 quadrants, soft, nontender, nondistended, no rebound or guarding, no organomegaly : Deferred MUSCULOSKELETAL: Normal ROM. No cyanosis, clubbing, swelling, joint deformity, extremity edema INTEGUMENTARY: Intact, no rashes, no lesions, no erythema NEUROLOGIC: Cranial Nerves II-XII are intact, no focal deficits PSYCHIATRIC: Mood and affect are normal LABORATORY DATA: Please see below Pathology for left temp artery biopsy pending. IMAGING: MRI brain: 1. No acute infarction, masses or hemorrhage is seen. No acute intracranial abnormality is identified. 2. Diffuse age-related cerebral atrophy and mild chronic microvascular white matter ischemic changes, without evidence of an acute intracranial abnormality. 3. There has been no adverse interval change since the previous study. CT angio of head: Neg for acute changes ASSESSMENT: 74 y/o F admitted for treatment/biopsy for possible temporal arteritis discharged home today in improved condition. PLAN: 1. Acute diplopia, r/o temporal arteritis. Improved with PO prednisone. C/w prednisone 60 mg Po daily x 14 days, 50 mg PO daily x 7 days, 40 mg PO daily x 7 days. F/u with vascular surgery for results of left temporal artery biopsy. Ophthalmology and PCP follow ups made. Tylenol PRN and neosporin daily for incision wound, specific care instructions given per surgery. 2. HTN. Stable. 3. Osteoporosis. C/w vitamin D supplement. 4. Iron deficiency anemia. Stable. C/w supplementation. DISPOSITION: Discharged home today in improved condition. Patient has follow ups with PCP, auto parts delivery driver, and vascular surgery. TIME SPENT ON DISCHARGE: 25 minutes. Vital Signs/I&Os Vital Signs Date Time Temp Pulse Resp B/P (MAP) Pulse Ox O2 Delivery O2 Flow Rate FiO2 10/29/19 12:00 97.4 61 18 111/56 (74) 94 Room Air 10/28/19 18:45 2 I&O- Last 24 Hours up to 6 AM 10/29/19 06:00 Intake Total 1050 ml Output Total 1100 ml Balance -50 ml Discharge Medications Scheduled Cholecalciferol (Vitamin D3) (Vitamin D3) 125 Mcg Capsule, 5,000 UNITS PO DAILY, (Reported) Ferrous Sulfate (Iron) 325 Mg Tablet, 325 MG PO DAILY, (Reported) Neomycin/Bacitracin/Polymyxinb (Neosporin Ointment) 28.3 Gm Oint...g., 28.3 GM TP DAILY Prednisone (Prednisone) 20 Mg Tablet, 60 MG PO DAILY Predisone taper x 4weeks: 60 mg Po x 14 days, 50 mg PO x 7 days, 40 mg Po x 7 days. Allergies Coded Allergies: Sulfa (Sulfonamide Antibiotics) (Verified Allergy, Unknown, RASH, 10/26/19) Amberly Robledo MD October 29, 2019 15:15
== END 2019-10-29 13:58 | disposition home or self-care (01) | DRG 517 ==
LOC: M ED 10:16 → M ED INP 10:17 → ENRESERV 13:20 → M PCU 13:51 → OBSVTOIN 10-28 14:00
PROVIDERS: ADMIT Internal Medicine; ATTEND Internal Medicine
PROC: 03BT0ZX Excision of Left Temporal Artery, Open Approach, Diagnostic (ICD-10-PCS; principal; 2019-10-28 17:00)
DX: M31.6 Other giant cell arteritis (principal); I10 Essential (primary) hypertension; M81.0 Age-related osteoporosis without current pathological fracture; D25.9 Leiomyoma of uterus, unspecified; H11.31 Conjunctival hemorrhage, right eye; H53.2 Diplopia; E55.9 Vitamin D deficiency, unspecified; D50.9 Iron deficiency anemia, unspecified; Z79.899 Other long term (current) drug therapy; Z88.2 Allergy status to sulfonamides

== ENCOUNTER → 2019-11-29 | Outpatient (REF) | payer MEDICARE, OTHER ==
[~2019-11-29] MED LIST changes: +IRON65TA2 PO; +NEOM28.3 TP; +PRED20TA PO; +VITA500075 PO
[2019-11-29 13:37] LABS: ALBUMIN 3.5 GM/DL (3.2-5.2); ALT/SGPT 15 U/L (12-78); BILIRUBIN,TOTAL 0.5 MG/DL (0.2-1.0); BLOOD UREA NITROGEN 18 MG/DL (7-18); CARBON DIOXIDE LEVEL 28 MEQ/L (21-32); CHLORIDE LEVEL 107 MEQ/L (98-107); CHOLESTEROL LEVEL 273 MG/DL (<200); CREATININE FOR GFR 0.67 MG/DL (0.55-1.30); GLOMERULAR FILTRATION RATE > 60.0 (>39); GLUCOSE, FASTING 76 MG/DL (70-100); HDL CHOLESTEROL 70 MG/DL (>40); LDL CHOLESTEROL 149 MG/DL (<100); NON-HDL-C 203 MG/DL; POTASSIUM SERUM 3.9 MEQ/L (3.5-5.1); SODIUM LEVEL 140 MEQ/L (136-145); TOTAL PROTEIN 6.7 GM/DL (6.4-8.2); TRIGLYCERIDES LEVEL 268 MG/DL (<150)
== END ==
LOC: M SFHCADAM 08:46
PROVIDERS: ATTEND Family Medicine
DX: E78.49 Other hyperlipidemia (principal)

== ENCOUNTER → 2020-05-01 | Outpatient (CLI) | payer MEDICARE, OTHER ==
--- NOTE | 2020-05-01 12:20 | REPMRS ---
Patient History The patient states she had a clinical breast exam in 04/2020. No known family history of cancer. No Hormone Replacement Therapy 3D TOMOSYNTHESIS WAS PERFORMED. The Maryam Ernandez lifetime risk for breast cancer is 3.4%. Volpara breast density b. Digital Woman Screen Mammo: May 01, 2020 - Exam #: [id number] Bilateral CC and MLO view(s) were taken. Technologist: Marla Lainez, Technologist Prior study comparison: May 14, 2019, bilateral digital woman screen mammo performed at [facility]. May 04, 2018, bilateral digital woman screen mammo performed at [facility]. FINDINGS: There are scattered fibroglandular densities. There has been no change in the appearance of the mammogram from the prior studies. There is a mild amount of residual fibroglandular tissue which is fairly symmetric. There is no interval development of dominant mass, architectural distortion, or clustered microcalcification suggestive of malignancy. Assessment: BI-RADS/ACR category 1 mammogram. Negative Mammogram. Recommendation Routine screening mammogram in 1 year (for women over age 40). This mammogram was interpreted with the aid of an FDA-approved computer-aided dectection system. Electronically Signed By: Mario Washington MD 05/01/20 [id number]
--- NOTE | 2020-05-01 16:11 | DEXA ---
INDICATION: M81.0 OSTEOPOROSIS. COMPARISON: 05/04/2018 as well as other prior exams. TECHNIQUE: Bone density was measured using dual-energy x-ray absorptiometry (DEXA). FINDINGS: AP SPINE L1-L4 BMD 0.841 g/cm2 Young Adult T-Score -2.9 Age Matched Z-Score -1.1. LT FEMUR, TOTAL BMD 0.808 g/cm2 Young Adult T-Score -1.6 Age Matched Z-Score 0.1. LT NECK BMD 0.654 g/cm2 Young Adult T-Score -2.8 Age Matched Z-Score -0.8. RT FEMUR, TOTAL BMD 0.807 g/cm2 Young Adult T-Score -1.6 Age Matched Z-Score 0.1. RT NECK BMD 0.703 g/cm2 Young Adult T-Score -2.4 Age Matched Z-Score -0.5. IMPRESSION: There is osteoporosis of the spine. There is osteoporosis of the left hip. There is low bone density of the right hip. The density of the spine has increased 5.5% since the initial exam on 06/06/2006. The density of the spine increased 0.7% since most recent exam on 05/04/2018. The density of the left hip has increased 7.2% since initial exam on of 6. The density of the left hip has decreased 1% since most recent exam on 05/04/2018. The density of the right hip has increased 10.5% since the initial exam on 06/06/2006. The density of the right hip has increased 3.2% since the most recent exam on 05/04/2018. FOLLOW-UP: Recommendation for the next bone density exam: 2 years. <Electronically signed by Mario Washington > 05/01/20 [id number]
== END ==
LOC: M WHC 09:50
PROVIDERS: ATTEND Nurse Practitioner Family
DX: Z01.419 Encounter for gynecological examination (general) (routine) without abnormal findings (principal); Z12.31 Encounter for screening mammogram for malignant neoplasm of breast; M81.0 Age-related osteoporosis without current pathological fracture
CPT/HCPCS: 77063; 77067; 77080; G0101

== ENCOUNTER → 2020-05-31 | Outpatient (CLI) | payer MEDICARE, OTHER ==
[~2020-05-31] MED LIST changes: +D31000TA2 PO; +IRON27TA2 PO
== END ==
LOC: M LABSMTC 10:39
PROVIDERS: ATTEND Anesthesiology
DX: Z11.59 Encounter for screening for other viral diseases (principal)

== ENCOUNTER 2020-06-05 09:47 | Day surgery (SDC) | payer MEDICARE, OTHER ==
[~2020-06-05] VITALS: Ht 160 cm; Wt 57.2 kg
[2020-06-05] MEDS ORDERED: LIDOCAINE 2% 100MG/5ML SDV (FOR ANES.) As Ordered ONE (11:06)
[2020-06-05] MEDS ORDERED: propofoL 200 MG/20 ML VIAL As Ordered ONE (11:06)
[2020-06-05] MEDS ORDERED: NS 1,000 ML IV ONE (11:15)
--- NOTE | 2020-06-05 12:32 | ROOR ---
Patient Name: Luis E Marsh Procedure Date: 06/05/2020 12:08 PM Date of : 1945 Age: 75 Room: [facility] Gender: Female Note Status: Finalized Procedure: Colonoscopy Indications: High risk colon cancer surveillance: Personal history of colonic polyps, Last colonoscopy: February 2015 Providers: Ramiro LOUIS MD Referring MD: KATIE ARREDONDO MD Requesting Provider: Medicines: Monitored Anesthesia Care Complications: No immediate complications. Procedure: Pre-Anesthesia Assessment: - The heart rate, respiratory rate, oxygen saturations, blood pressure, adequacy of pulmonary ventilation, and response to care were monitored throughout the procedure. The Colonoscope was introduced through the anus and advanced to the cecum, identified by appendiceal orifice and ileocecal valve. The colonoscopy was performed without difficulty. The patient tolerated the procedure well. The quality of the bowel preparation was good. Findings: The perianal and digital rectal examinations were normal. Two sessile polyps were found in the cecum and appendiceal orifice. The polyps were 3 to 8 mm in size. These polyps were removed with a piecemeal technique using a cold snare. Resection and retrieval were complete. A 4 mm polyp was found in the sigmoid colon. The polyp was sessile. The polyp was removed with a cold snare. Resection and retrieval were complete. Mild sigmoid diverticulosis and small internal hemorrhoids. The exam was otherwise without abnormality on direct and retroflexion views. Impression: - Two 3 to 8 mm polyps in the cecum and at the appendiceal orifice, removed piecemeal using a cold snare. Resected and retrieved. - One 4 mm polyp in the sigmoid colon, removed with a cold snare. Resected and retrieved. - Mild sigmoid diverticulosis and small internal hemorrhoids. - The examination was otherwise normal on direct and retroflexion views. Recommendation: - Repeat colonoscopy in 5 years for surveillance. Procedure Code(s): --- Professional --- 29882, Colonoscopy, flexible; with removal of tumor(s), polyp(s), or other lesion(s) by snare technique Diagnosis Code(s): --- Professional --- Z86.010, Personal history of colonic polyps K63.5, Polyp of colon CPT copyright 2019 [employer] [place] [employer]. All rights reserved. The codes documented in this report are preliminary and upon incident response engineer review may be revised to meet current compliance requirements. Ramiro Louis MD Ramiro LOUIS MD 06/05/2020 12:32:13 PM Electronically signed by Ramiro LOUIS MD Number of Addenda: 0 Note Initiated On: 06/05/2020 12:08 PM Estimated Blood Loss: Estimated blood loss: none.
[2020-06-05 13:02] VITALS: BP 114/57
== END 2020-06-05 13:01 | disposition home or self-care (01) ==
LOC: M OPP 09:47
PROVIDERS: ATTEND Internal Medicine Gastroenterology
DX: Z12.11 Encounter for screening for malignant neoplasm of colon (principal); Z86.010 Personal history of colon polyps; K63.5 Polyp of colon; Z88.2 Allergy status to sulfonamides

== ENCOUNTER → 2021-05-24 | Outpatient (CLI) | payer MEDICARE, OTHER ==
--- NOTE | 2021-05-24 15:23 | REPMRS ---
Patient History The patient states she had a clinical breast exam in April 2021. No known family history of cancer. No Hormone Replacement Therapy Tomosynthesis is performed. Volpara breast density is b. Tyrer-Cuzi lifetime risk of breast cancer 3.1%. Patient states no breast complaints today. Patient has signed MRS History Sheet. Digital Woman Screen Mammo: May 24, 2021 - Exam #: [id number] Bilateral CC and MLO view(s) were taken. Technologist: Park Eaton, Technologist Prior study comparison: May 01, 2020, bilateral digital woman screen mammo performed at [facility]. May 14, 2019, bilateral digital woman screen mammo performed at [facility]. FINDINGS: There are scattered fibroglandular densities. There has been no change in the appearance of the mammogram from the prior studies. There is a mild amount of residual fibroglandular tissue which is fairly symmetric. There is no interval development of dominant mass, architectural distortion, or clustered microcalcification suggestive of malignancy. Assessment: BI-RADS/ACR category 1 mammogram. Negative Mammogram. Recommendation Routine screening mammogram in 1 year (for women over age 40). This mammogram was interpreted with the aid of an FDA-approved computer-aided dectection system. Electronically Signed By: Mario Washington MD 05/24/21 [id number]
== END ==
LOC: M WHC 13:47
PROVIDERS: ATTEND Nurse Practitioner Women's Health
DX: Z01.419 Encounter for gynecological examination (general) (routine) without abnormal findings (principal); Z12.31 Encounter for screening mammogram for malignant neoplasm of breast
CPT/HCPCS: 77063; 77067; G0101

== ENCOUNTER → 2021-10-29 | Outpatient (REF) | payer MEDICARE ==
[~2021-10-29] MED LIST changes: -D31000TA2 PO; +VITA100093 PO
[2021-10-29 12:44] LABS: BASO # 0.1 10^3/uL (0.0-0.2); BASO % 1.2 % (0.0-1.0); EOS # 0.1 10^3/uL (0.0-0.5); EOS % 2.7 % (0.0-3.0); HEMATOCRIT 36.8 % (36.0-47.0); HEMOGLOBIN 12.3 g/dl (12.0-15.5); LYMPH # 1.8 10^3/uL (1.5-5.0); LYMPH % 37.8 % (24.0-44.0); MEAN CORPUSCULAR HEMOGLOBIN 31.1 pg (27.0-33.0); MEAN CORPUSCULAR HGB CONC 33.4 g/dl (32.0-36.5); MEAN CORPUSCULAR VOLUME 92.9 fl (80.0-96.0); MONO # 0.3 10^3/uL (0.0-0.8); MONO % 5.2 % (2.0-8.0); NEUTROPHILS # 2.6 10^3/uL (1.5-8.5); NEUTROPHILS % 52.9 % (36.0-66.0); PLATELET COUNT, AUTOMATED 240 10^3/uL (150-450); RED BLOOD COUNT 3.96 10^6/uL (4.00-5.40); WHITE BLOOD COUNT 4.8 10^3/uL (4.0-10.0)
[2021-10-29 12:54] LABS: ALBUMIN 3.6 GM/DL (3.2-5.2); ALT/SGPT 10 U/L (12-78); BILIRUBIN,TOTAL 0.3 MG/DL (0.2-1.0); BLOOD UREA NITROGEN 16 MG/DL (7-18); CARBON DIOXIDE LEVEL 29 MEQ/L (21-32); CHLORIDE LEVEL 108 MEQ/L (98-107); CHOLESTEROL LEVEL 273 MG/DL (<200); CHOLESTEROL RISK RATIO 4.875 (<5); CREATININE FOR GFR 0.68 MG/DL (0.55-1.30); GLOMERULAR FILTRATION RATE > 60.0 (>39); GLUCOSE, FASTING 99 MG/DL (70-100); HDL CHOLESTEROL 56 MG/DL (>40); LDL CHOLESTEROL 186 MG/DL (<100); NON-HDL-C 217 MG/DL; POTASSIUM SERUM 4.1 MEQ/L (3.5-5.1); SODIUM LEVEL 141 MEQ/L (136-145); TOTAL PROTEIN 7.2 GM/DL (6.4-8.2); TRIGLYCERIDES LEVEL 154 MG/DL (<150)
== END ==
LOC: M SFHCADAM 08:49
PROVIDERS: ATTEND Family Medicine
DX: Z00.00 Encounter for general adult medical examination without abnormal findings (principal); E78.49 Other hyperlipidemia; I10 Essential (primary) hypertension

== ENCOUNTER → 2022-05-26 | Outpatient (CLI) | payer MEDICARE | LOC: M WHC 12:45 | PROVIDERS: ATTEND Physician Assistant Medical | DX: Z12.31 Encounter for screening mammogram for malignant neoplasm of breast (principal); M81.0 Age-related osteoporosis without current pathological fracture; M85.851 Other specified disorders of bone density and structure, right thigh ==

== ENCOUNTER → 2022-06-15 | Outpatient (REF) | payer MEDICARE ==
[2022-06-15 13:03] LABS: BASO % 0.8 % (0.0-1.0); EOS # 0.1 10^3/uL (0.0-0.5); EOS % 1.4 % (0.0-3.0); HEMATOCRIT 39.1 % (36.0-47.0); HEMOGLOBIN 12.8 g/dl (12.0-15.5); LYMPH # 1.9 10^3/uL (1.5-5.0); LYMPH % 29.2 % (24.0-44.0); MEAN CORPUSCULAR HGB CONC 32.7 g/dl (32.0-36.5); MEAN CORPUSCULAR VOLUME 94.7 fl (80.0-96.0); MONO # 0.4 10^3/uL (0.0-0.8); MONO % 5.9 % (2.0-8.0); NEUTROPHILS # 4.1 10^3/uL (1.5-8.5); NEUTROPHILS % 62.5 % (36.0-66.0); PLATELET COUNT, AUTOMATED 246 10^3/uL (150-450); RED BLOOD COUNT 4.13 10^6/uL (4.00-5.40); WHITE BLOOD COUNT 6.6 10^3/uL (4.0-10.0)
[2022-06-15 13:04] LABS: BASO # 0.1 10^3/uL (0.0-0.2)
[2022-06-15 13:06] LABS: ALBUMIN 3.7 G/DL (3.2-5.2); ALKALINE PHOSPHATASE 49 U/L (46-116); ALT/SGPT < 9 U/L (7.0-40); AST/SGOT 17 U/L (<34); BILIRUBIN,TOTAL 0.3 MG/DL (0.3-1.2); BLOOD UREA NITROGEN 18 MG/DL (9-23); CALCIUM LEVEL 9.4 MG/DL (8.3-10.6); CARBON DIOXIDE LEVEL 27 MMOL/L (20-31); CHLORIDE LEVEL 107 MMOL/L (98-107); CHOLESTEROL LEVEL 244 MG/DL (<200); CHOLESTEROL RISK RATIO 4.57 (<5); CREATININE FOR GFR 0.57 MG/DL (0.55-1.30); GLOMERULAR FILTRATION RATE > 60.0 (>39); GLUCOSE, FASTING 92 MG/DL (74-106); HDL CHOLESTEROL 53.3 MG/DL (>40); LDL CHOLESTEROL 135.1 MG/DL (<100); NON-HDL-C 191 MG/DL; POTASSIUM SERUM 4.3 MMOL/L (3.5-5.1); SODIUM LEVEL 142 MMOL/L (136-145); TOTAL PROTEIN 7.2 G/DL (5.7-8.2); TRIGLYCERIDES LEVEL 278 MG/DL (<150)
== END ==
LOC: M SFHCADAM 08:03
PROVIDERS: ATTEND Family Medicine
DX: Z00.00 Encounter for general adult medical examination without abnormal findings (principal); Z79.899 Other long term (current) drug therapy

== ENCOUNTER → 2023-05-30 | Outpatient (CLI) | payer MEDICARE | LOC: M WHC 08:25 | PROVIDERS: ATTEND Family Medicine | DX: Z12.31 Encounter for screening mammogram for malignant neoplasm of breast (principal) ==

== ENCOUNTER → 2023-10-13 | Outpatient (CLI) | payer MEDICARE | LOC: M WHC 11:53 | PROVIDERS: ATTEND Nurse Practitioner Family | DX: R10.2 Pelvic and perineal pain (principal); D25.1 Intramural leiomyoma of uterus; R93.89 Abnormal findings on diagnostic imaging of other specified body structures ==

== ENCOUNTER → 2023-11-16 | Outpatient (REF) | payer MEDICARE ==
[2023-11-16 14:52] LABS: BASO % 0.7 % (0.0-1.0); EOS # 0.1 10^3/uL (0.0-0.5); EOS % 1.3 % (0.0-3.0); HEMATOCRIT 40.4 % (36.0-47.0); HEMOGLOBIN 13.4 g/dl (12.0-15.5); LYMPH % 33.1 % (24.0-44.0); MEAN CORPUSCULAR HEMOGLOBIN 31.5 pg (27.0-33.0); MEAN CORPUSCULAR HGB CONC 33.2 g/dl (32.0-36.5); MEAN CORPUSCULAR VOLUME 94.8 fl (80.0-96.0); MONO # 0.4 10^3/uL (0.0-0.8); MONO % 6.1 % (2.0-8.0); NEUTROPHILS # 3.5 10^3/uL (1.5-8.5); NEUTROPHILS % 58.6 % (36.0-66.0); PLATELET COUNT, AUTOMATED 235 10^3/uL (150-450); RED BLOOD COUNT 4.26 10^6/uL (4.00-5.40)
[2023-11-16 14:54] LABS: ALBUMIN 3.8 G/DL (3.2-5.2); ALKALINE PHOSPHATASE 54 U/L (46-116); ALT/SGPT 9 U/L (7.0-40); AST/SGOT < 8 U/L (<34); BILIRUBIN,TOTAL 0.5 MG/DL (0.3-1.2); BLOOD UREA NITROGEN 16 MG/DL (9-23); CARBON DIOXIDE LEVEL 28 MMOL/L (20-31); CHLORIDE LEVEL 107 MMOL/L (98-107); CHOLESTEROL LEVEL 274 MG/DL (<200); CHOLESTEROL RISK RATIO 5.21 (<5); CREATININE FOR GFR 0.72 MG/DL (0.55-1.30); GLOMERULAR FILTRATION RATE > 60.0 (>39); GLUCOSE, FASTING 89 MG/DL (74-106); HDL CHOLESTEROL 52.5 MG/DL (>40); LDL CHOLESTEROL 181.9 MG/DL (<100); NON-HDL-C 221.5 MG/DL; POTASSIUM SERUM 4.2 MMOL/L (3.5-5.1); SODIUM LEVEL 139 MMOL/L (136-145); TOTAL PROTEIN 7.2 G/DL (5.7-8.2); TRIGLYCERIDES LEVEL 198 MG/DL (<150)
[2023-11-16 14:58] LABS: THYROID STIMULATING HORMONE 2.598 uIU/ML (0.55-4.78)
== END ==
LOC: M SFHCADAM 07:35
PROVIDERS: ATTEND Family Medicine
DX: Z00.00 Encounter for general adult medical examination without abnormal findings (principal); Z79.899 Other long term (current) drug therapy

== ENCOUNTER → 2024-01-29 | Outpatient (CLI) | payer MEDICARE | LOC: M ADAMS 09:12 | PROVIDERS: ATTEND Family Medicine | DX: R06.09 Other forms of dyspnea (principal) ==

== ENCOUNTER → 2024-05-10 | Outpatient (REF) | payer MEDICARE ==
[2024-05-10 14:28] LABS: ALT/SGPT < 9 U/L (7.0-40); AST/SGOT 9 U/L (<34); CHOLESTEROL LEVEL 226 MG/DL (<200); CHOLESTEROL RISK RATIO 4.45 (<5); CPK CREATINE PHOSPHOKINASE 44 U/L (34-145); HDL CHOLESTEROL 50.7 MG/DL (>40); LDL CHOLESTEROL 140.1 MG/DL (<100); NON-HDL-C 175.3 MG/DL; TRIGLYCERIDES LEVEL 176 MG/DL (<150)
== END ==
LOC: M LABDRWAD 13:14
PROVIDERS: ATTEND Internal Medicine Cardiovascular Disease
DX: E78.2 Mixed hyperlipidemia (principal); Z71.82 Exercise counseling; Z71.3 Dietary counseling and surveillance

== ENCOUNTER → 2024-06-04 | Outpatient (CLI) | payer MEDICARE | LOC: M WHC 10:00 | PROVIDERS: ATTEND Family Medicine | DX: Z12.31 Encounter for screening mammogram for malignant neoplasm of breast (principal) ==

== ENCOUNTER → 2024-11-08 | Outpatient (REF) | payer MEDICARE ==
[2024-11-08 13:38] LABS: ALT/SGPT < 9 U/L (7.0-40); AST/SGOT 12 U/L (<34); CHOLESTEROL LEVEL 234 MG/DL (<200); CHOLESTEROL RISK RATIO 4.47 (<5); HDL CHOLESTEROL 52.3 MG/DL (>40); LDL CHOLESTEROL 143.5 MG/DL (<100); NON-HDL-C 181.7 MG/DL; TRIGLYCERIDES LEVEL 191 MG/DL (<150)
[2024-11-08 13:43] LABS: CPK CREATINE PHOSPHOKINASE 49 U/L (34-145)
== END ==
LOC: M LABDRWAD 12:57
PROVIDERS: ATTEND Internal Medicine Cardiovascular Disease
DX: I25.84 Coronary atherosclerosis due to calcified coronary lesion (principal); E78.2 Mixed hyperlipidemia

== ENCOUNTER → 2025-03-27 | Outpatient (REF) | payer MEDICARE ==
[2025-03-27 14:49] LABS: ALT/SGPT < 9 U/L (7.0-40); AST/SGOT 15 U/L (<34); CHOLESTEROL LEVEL 254 MG/DL (<200); CHOLESTEROL RISK RATIO 4.45 (<5); CPK CREATINE PHOSPHOKINASE 43 U/L (34-145); LDL CHOLESTEROL 161.0 MG/DL (<100); NON-HDL-C 197.0 MG/DL; TRIGLYCERIDES LEVEL 180 MG/DL (<150)
== END ==
LOC: M LAB REF 08:56
PROVIDERS: ATTEND Internal Medicine Cardiovascular Disease
DX: I25.10 Atherosclerotic heart disease of native coronary artery without angina pectoris (principal); E78.2 Mixed hyperlipidemia; I10 Essential (primary) hypertension

== ENCOUNTER → 2025-06-10 | Outpatient (CLI) | payer MEDICARE | LOC: M WHC 13:57 | PROVIDERS: ATTEND Family Medicine | DX: Z12.31 Encounter for screening mammogram for malignant neoplasm of breast (principal) ==